=== PATIENT | female | born 1930 | race Caucasian/White ===

== ENCOUNTER 2017-11-29 03:37 | Observation (INO) | payer OTHER ==
[~2017-11-29] VITALS: Ht 154.9 cm; Wt 59.0 kg
[~2017-11-29 03:37] MED LIST: AMOXICILLIN500 M3 PO; ANTIVERT 25 MG25 MG PO; BENTYL10 MG PO; BISACODYL10 MG PR; CYCLOBENZAPRINE10 M1 PO; DULCOLAX10 M1 RC; FOSAMAX10 MG PO; GABAPENTIN100 M2 PO; GOLYTELY 40004000 ML PO; LIORESAL 10MG T10 MG PO; LISINOPRIL20 MG PO; LYRICA25 MG PO; MEDROL4 M2 PO; METFORMIN HCL1000 M1 PO; METFORMIN1000 MG PO; MIRALAX17 G1 PO; MIRALAX17 GM PO; MOBIC7.5 MG PO; MOTRIN 400 MG400 MG PO; OMEPRAZOLE20 M2 PO; OMEPRAZOLE20 MG PO; PERCOCET 325 MG1 TA2 PO; ROXICODONE5 MG PO; SENOKOT-S TABL1 EACH PO; SIMVASTATIN10 M1 PO; Senokot S PO; TRAMADOL HCL50 M1 PO; TYLENOL #31 TAB PO; TYLENOL EXTRA500 M2 PO; TYLENOL500 MG PO; Tylenol PO; VITAMIN D1000 IU PO; ZOFRAN4 M1 SL
--- NOTE | 2017-11-29 14:10 | Operative Report ---
Operative/Inv Procedure Report Surgery Date: 11/29/17 Name of Procedure: left ureter (UPJ) stone ESWL with fluoroscopy Pre-Operative Diagnosis: left colic with large left UPJ stone Post-Operative Diagnosis: same Estimated Blood Loss: none Surgeon/[employer]obile [employer] Builder: Clyde Calderon MD Anesthesia: moderate sedation Specimens: none Complications: none Condition: improved Operative/Procedure Note Note: The patient was taken to the operating room and placed on the ESWL table in supine position. Time out was performed, with the patient awake, to confirm identity, procedure, laterality, and other pertinent randal-operative information. After adequate anesthesia, the patient was positioned so that the left flank was placed over the ESWL table cut-out, and overlying the dome of the shockwave generator. C-arm fluroscopy, as well as renal US was used to locate the stone, and evaluate the left kidney. The stone was visible on fluroloscopy at the proximal left ureter. Renal US confirmed mild hydronephrosis, with no additional stone seen in the left kidney. The left ureter stone was approximate 9 mm in size, and visible with fluoroscopy. Using fluoroscopy, the position of the ureter stone was optimized for ESWL, using AP, and oblique views of the stone. Subsequently, E.S.W.L. was initiated at low power levels x 200 shocks. After noting the patient's tolerance to the shockwaves, the shock wave power level was quickly maximized. At the end of the procedure, the composition of the stone had changed significantly indicating the pulverization of the ureter stone. A total of 3000 shockwaves were delivered to the stone in order to achieve adequate lithotrypsy. The patient tolerated the procedures well, was awakened, and taken to recovery in satisfactory condition via stretcher. The pt will eventually be dischared to home with pain meds, diet orders, and intructions to catch fragments with straining the urine. The patient is to have follow-up renal ultrasound and KUB (after the left renal stone is treated as well).
[2017-11-29 19:00] VITALS: BP 166/90
[2017-11-29 22:27] VITALS: BP 120/60
--- NOTE | 2017-11-30 01:16 | History & Physical ---
Madelaine GARCIA,[facility] 11/30/17 0115: General Information and HPI MD Statement: I have seen and personally examined MICHELLE MAHER and documented this H&P. The patient is a 87 year old F who presented with a patient stated chief complaint of [severe abdominal pain S/P ESWL]. Source of Information: patient Exam Limitations: poor historian History of Present Illness: Ms. Maher is 87 year old female with past medical history significant for hypertension, GERD, osteoarthritis, diabetes, vertigo, low back pain, recent ED visit 11/14/17 for severe low back pain, CT abdomen and pelvis was obtained and revealed 9 mm proximal left ureteral calculus without definitive obstruction, patient was discharged home to follow up with urology. UA negative for nitrates however urine culture grew enterococcus that was sensitive. Patient was treated with amoxicillin for 10 days. Today patient had ESWL with Dr. Calderon for left ureter [UPJ] stone with fluoroscopy, patient tolerated procedure well however in PICU patient started to have intractable abdominal pain, nausea and vomiting and was admitted to general medical floor for pain management. Patient received 1 tab of Percocet and Zofran for nausea, reported feeling much better, sleeping comfortably. Patient reported LLQ and left flank pain however after medication she denied any severe abdominal pain, nausea, vomiting, burning with urination. She denied any chest pain, shortness of breath, palpitation, dizziness or blurry vision. Allergies/Medications Allergies: Coded Allergies: codeine (N/V, DIZZY 02/06/16) Home Med list Amoxicillin 500 MG TABLET 1 TAB PO BID UTI Bisacodyl (Dulcolax) 10 MG SUPP.RECT 1 SUP RC DAILY PRN Constipation Cyclobenzaprine HCl 10 MG TABLET 1 TAB PO Q12 PRN PAIN Gabapentin 100 MG CAPSULE 200 MG PO TID PAIN CONTROL Metformin HCl 1,000 MG TABLET 1 TAB PO DAILY DIABETES (Reported) Methylprednisolone. (Medrol) 4 MG TAB.DS.PK 1 DP PO AD Inflammation 6 on day 1 then reduce by one tablet daily until gone Omeprazole 20 MG CAPSULE.DR 1 CAP PO DAILY GI (Reported) Polyethylene Glycol 3350 (Miralax) 17 GM POWD.PACK 1 PAC PO DAILY Constipation dissolve in water Sennosides/Docusate Sodium (Senokot-S Tablet) 1 EACH TABLET 2 TAB PO AT BED TIME CONSTIPATION (Reported) Simvastatin (Simvastatin*) 10 MG TABLET 1 TAB PO QPM CHOLESTEROL (Reported) Tramadol HCl 50 MG TABLET 50 MG PO TID PAIN CONTROL [Tylenol] 1,000 MG PO TID Past History Medical History Blood Transfusion Hx: No Neurological: vertigo EENT: NONE Cardiovascular: hypertension Respiratory: NONE Gastrointestinal: GERD Hepatic: NONE Renal: NONE Musculoskeletal: osteoarthritis Psychiatric: NONE Endocrine: diabetes Blood Disorders: NONE Cancer(s): NONE WIRING INSPECTOR/Reproductive: NONE History of MRSA: No History of VRE: No History of CDIFF: No Surgical History Surgical History: cholecystectomy Past Family/Social History Family History Relations & Conditions if any Relation not specified for: *No pertinent family history Psychosocial History Services at Home: None Smoking Status: Never Smoked Review of Systems Review of Systems Constitutional: Denies: chills, fever. EENTM: Denies: double vision, nasal pain. Cardiovascular: Denies: chest pain, palpitations. Respiratory: Denies: cough, short of breath. GI: Denies: abdominal pain, constipation. Genitourinary: Denies: dysuria, hematuria. Exam & Diagnostic Data Last 24 Hrs of Vital Signs/I&O Vital Signs Date Time Temp Pulse Resp B/P B/P Pulse O2 O2 Flow FiO2 Mean Ox Delivery Rate 11/29 2227 97.9 99 20 120/60 94 Room Air 11/29 1900 98.0 112 16 166/90 92 Room Air Intake & Output 11/30 0800 11/30 0000 11/29 1600 Intake Total 60 Output Total Balance 60 Intake, IV 10 Intake, Oral 50 Patient 58.967 kg 58.967 kg Weight Physical Exam General Appearance Alert, Cooperative, No Acute Distress Skin No Rashes, No Breakdown Skin Temp/Moisture Exam: Warm/Dry HEENT Atraumatic, PERRLA, EOMI, Mucous Membr. moist/pink Neck Supple Cardiovascular Regular Rate, Normal S1, Normal S2, No Murmurs Lungs Clear to Auscultation, Normal Air Movement Abdomen Normal Bowel Sounds, Soft, No Tenderness, no flank tenderness Neurological Normal Speech, Strength at 5/5 X4 Ext Extremities No Clubbing, No Cyanosis, No Edema, Normal Pulses Assessment/Plan Assessment: Ms. Maher is 87 year old female with past medical history significant for hypertension, anemia, chronic kidney disease, GERD, osteoarthritis, diabetes, vertigo, low back pain, was admitted from PICU after ESWL for left ureter [UPJ] stone with fluoroscopy for sever left lower quadrant and left flank pain associated with nausea and vomiting. S/P treatment of sensitive entercoccus in urine culture 11/14/17 with 10 days amoxcillin. Admission vital signs temperature 97.9, pulse 99, blood pressure 120/60, respiratory rate 20 with saturation 94% on room air Problem list Intractable pain status post ESWL for left ureter stone with fluoroscopy Hypertension Diabetes mellitus Osteoarthritis Plan Observe in general medical floor Vitals every shift Repeat CBC and BMP in a.m. Pain medication acetaminophen for mild pain and Percocet for moderate to severe pain Avoid narcotics Accu check and NovoLog sliding scale low-dose Continue home medication DVT prophylaxis heparin subcutaneous Diet diabetic with sodium restriction Code Full confirmed by family Louis Maher son on [phone] As Ranked By This Provider Problem List: 1. Intractable back pain Core Measures/Misc (07/03) Acute Coronary Syndrome ACS Diagnosis: No Congestive Heart Failure Congestive Heart Failure Diagnosis No Cerebrovascular Accident CVA/TIA Diagnosis: No VTE (View Protocol) VTE Risk Factors Age>40 No Mechanical VTE Prophylaxis d/t N/A MechProphylax Ordered No VTE Pharm Prophylaxis d/t NA PharmProphylax ordered Sepsis (View protocol) Sepsis Present: No Observation Initial Note - I have personally examined MICHELLE MAHER on 11/30/17 at 0412. 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 She was found to have left ureteral nonobstructing stone with no hydronephrosis. Patient was suggested to follow-up with primary care physician urologist. Urologist planned ESWL and obtained cardiac clearance for days back. Today patient underwent left ureter ( UPJ) stone ESWL with fluoroscopy. Postprocedure patient persistently had pain 5/ 10, nonradiating. Patient could not tolerate any by mouth intake and vomited 3 times. Patient received gentle hydration in PACU. Because of persistent pain patient was suggested to be an observation in hospital. Vitals: Afebrile, was 112, RR 16, blood pressure 166/90, saturating well on room air. On exam: A O 3, cooperative, no acute distress, hard of hearing, neck supple, JVD normal, no lymphadenopathy, mucosa moist, no focal neurological deficit, no dependent edema, no obvious skin rashes or inflammation CVS: S1-S2, RRR. RS: Clear to auscultate bilaterally. Abdomen: Soft, mild left flank and CVA tenderness, ND, bowel sounds present. Assessment and plan 87-year-old female with past medical history significant for GERD, OA, DM, Vertigo, CVA s/p tPA January 2017, underwent left ureter (UPJ) stone ESWL with fluoroscopy. Postprocedure patient persistently had pain 5/10, nonradiating. Patient could not tolerate any by mouth intake and vomited 3 times. Vomiting could be secondary to Dilaudid. Her tachycardia and mildly elevated blood pressure could be secondary to pain. Patient would benefit placement in observation for adequate pain control before discharge and advancing diet in the setting of nausea vomiting. Of note on November 14 patient's urine culture grew sensitive enterococcus and was treated with amoxicillin for 10 days prior to procedure. + Left flank pain postop ESWL + Nausea vomiting + History of GERD, OA, DM, Vertigo, CVA - Place in observation on general medicine - Advance diet as tolerated - When necessary Zofran - Adequate pain control - Urology consultation - Continue sliding scale insulin - Continue rest of her home medications - DVT prophylaxis
--- NOTE | 2017-11-30 06:10 | Event Note ---
Event Note Event Note: Code Full confirmed by family Louis Hsu son on [phone]
[2017-11-30 06:20] VITALS: BP 136/70
--- NOTE | 2017-11-30 07:25 | PN-Observation ---
Gene GARCIA,[facility] 11/30/17 0725: Observation Note Observation Note _ I have personally examined MICHELLE MAHER. her disposition is uncertain at this time. Before a determination can be made, she requires continued observation for the following reasons [L flank pain after ESWL]. Assessment/Plan Assessment: Ms. Maher is 87 year old female with past medical history significant for hypertension, anemia, chronic kidney disease, GERD, osteoarthritis, diabetes, vertigo, low back pain, was admitted from PICU after ESWL for left ureter [UPJ] stone with fluoroscopy for sever left lower quadrant and left flank pain associated with nausea and vomiting. S/P treatment of sensitive entercoccus in urine culture 11/14/17 with 10 days amoxcillin. Admission vital signs temperature 97.9, pulse 99, blood pressure 120/60, respiratory rate 20 with saturation 94% on room air Problem list Intractable pain status post ESWL for left ureter stone with fluoroscopy Hypertension Diabetes mellitus Osteoarthritis Plan -KUB revealved no stone but patient continued to have pain. -Repeat CT abd with IV contrast: Left grade 1 hydronephrosis secondary to obstructive left ureteral calculi. Moderate-sized left perinephric fluid collection. Hiatal hernia. Small left pleural effusion with associated airspace disease. -f/u urology consult -WBC 12.8. continue to monitor. Most likely stress as pt has been afebrile -h/h 9.9/29.3. mildly below baseline. cont to monitor for s/p ESWL hematoma -Cr 1.3: CKD is stable. cont to monitor Pain medication acetaminophen for mild pain and Percocet for moderate to severe pain Avoid narcotics Accu check and NovoLog sliding scale low-dose Continue home medication DVT prophylaxis heparin subcutaneous Diet diabetic with sodium restriction Code Full confirmed by family Louis Maher son on [phone] Problem List: 1. Kidney stone 2. Hydronephrosis Subjective Follow-up For: flank pain ESWL Subjective: No acute problems overnight. Still complaining of L flank pain and now difuse abd pain. Review of Systems Constitutional: Reports: see HPI. Cardiovascular: Reports: no symptoms. Respiratory: Reports: no symptoms. Gastrointestinal: Reports: no symptoms. Genitourinary: Reports: no symptoms. Musculoskeletal: Reports: see HPI, back pain. Objective Last 24 Hrs of Vital Signs/I&O Vital Signs Date Time Temp Pulse Resp B/P B/P Pulse O2 O2 Flow FiO2 Mean Ox Delivery Rate 11/30 2228 98.1 98 20 122/60 92 Room Air 11/30 1445 98.2 98 20 120/70 96 11/30 0620 97.5 85 18 136/70 95 Room Air Intake & Output 11/30 1600 11/30 0800 11/30 0000 Intake Total 100 60 Output Total Balance 100 60 Intake, IV 10 Intake, Oral 100 50 Patient 130 lb Weight Physical Exam General Appearance: Alert, Cooperative, Mild Distress Cardiovascular: tachycardic Lungs: Clear to Auscultation, Normal Air Movement Abdomen: diffuse abd pain, BS+, very tender LLQ pain Vascular: 2+ radial pulses Current Medications: Current Medications Sig/Casey Start time Last Medication Dose Route Stop Time Status Admin Acetaminophen 650 MG Q6P PRN 11/30 0200 AC 11/30 PO 1742 Atorvastatin Calcium 5 MG 1700 11/30 1700 AC 11/30 PO 1740 Bisacodyl 10 MG DAILY PRN 11/30 0400 AC WV Gabapentin 200 MG TID 11/30 1000 AC 11/30 PO 2055 Heparin Sodium 5,000 UNIT Q8 11/30 0600 AC 11/30 (Porcine) SC 2055 Insulin Aspart 0 TIDAC 11/30 0800 AC SC Omeprazole 20 MG DAILY 11/30 1000 AC 11/30 PO 0831 Ondansetron HCl 4 MG Q6P PRN 11/30 0200 AC IV Ondansetron HCl 4 MG ONCE PRN 11/29 1930 AC IV Oxycodone/ 1 TAB Q6P PRN 11/30 0200 AC Acetaminophen PO Polyethylene Glycol 17 GM DAILY NEEDED PRN 11/30 1130 AC PO Senna 374 MG AT BEDTIME NEED.. 11/30 1145 AC PO Sodium Chloride 1,000 ML Q10H 11/30 2000 AC 11/30 IV 12/01 0559 2055 Last 24 Hrs of Labs/Mics: Laboratory Tests 11/30/17 0719: Anion Gap 11, Estimated GFR 39 L, BUN/Creatinine Ratio 17.7, CBC w Diff NO MAN DIFF REQ, RBC 3.19 L, MCV 91.9, MCH 30.9, MCHC 33.6, RDW 14.9 H, MPV 9.4, Gran % 77.6 H, Lymphocytes % 9.7 L, Monocytes % 12.4 H, Eosinophils % 0.2, Basophils % 0.1, Absolute Granulocytes 9.9 H, Absolute Lymphocytes 1.2, Absolute Monocytes 1.6 H, Absolute Eosinophils 0, Absolute Basophils 0
[2017-11-30 08:21] LABS: ABSOLUTE BASOPHIL COUNT 0 /CUMM (0.0-0.2); ABSOLUTE EOSINOPHIL COUNT 0 /CUMM (0.0-0.7); ABSOLUTE GRANULOCYTE CT 9.9 /CUMM (1.4-6.5); ABSOLUTE LYMPH COUNT 1.2 /CUMM (1.2-3.4); ABSOLUTE MONOCYTE COUNT 1.6 /CUMM (0.10-0.60); BASOPHIL % 0.1 % (0.0-2.0); EOSINOPHIL % 0.2 % (0-5); GRANULOCYTE % 77.6 % (42.2-75.2); HEMATOCRIT 29.3 % (37-47); MEAN CORPUSCULAR HGB 30.9 PG (27.0-31.0); MEAN CORPUSCULAR HGB CONC 33.6 G/DL (33.0-37.0); MEAN CORPUSCULAR VOLUME 91.9 FL (81.0-99.0); MEAN PLATELET VOLUME 9.4 FL (7.4-10.4); PLATELET COUNT 208 /CUMM (130-400); RBC DISTRIBUTION WIDTH 14.9 % (11.5-14.5); RED BLOOD CELL CT 3.19 /CUMM (4.20-5.40); WHITE BLOOD CELL COUNT 12.8 /CUMM (4.8-10.8)
[2017-11-30 14:45] VITALS: BP 120/70
--- NOTE | 2017-11-30 16:07 | RADIOLOGY REPORT ---
EXAMINATION: CR ABDOMEN CLINICAL INDICATION: Continued abdominal pain. Assess for free air, stool, kidney stones, etc. Abdominal pain status post ESWL. COMPARISON: Two-view abdomen dated 08/07/2014. CT scan of the abdomen and pelvis dated 11/14/2017. TECHNIQUE: AP view of the abdomen performed on 2 images. FINDINGS: There are no radiopaque calculi seen projected over the kidneys. The proximal left ureteral calculus seen on CT scan is not seen on this KUB. Patient gives a history of previous ESWL. Multiple calcifications are projected over the pelvis, appearing similar to prior KUB. No definite retained ureteral calculi are suspected. A peripherally rim-calcified diverticular outpouching in the right lower quadrant is again seen, unchanged. Diffuse osteopenia is noted with compression deformity of the L3 vertebral body, unchanged from prior study. Included lung bases are clear. Dense atherosclerotic calcifications of the aortoiliac vessels are noted. IMPRESSION: The proximal left ureteral calculus seen on recent CT scan is not visualized on this plain film and presumably has been obliterated by ESWL. No suspicious calcifications seen to suspect retained ureteral calculi, though evaluation is limited by multiple calcific densities seen chronically in the pelvis.
--- NOTE | 2017-11-30 22:06 | CT SCAN REPORT ---
EXAMINATION: CT ABDOMEN AND PELVIS WITH CONTRAST CLINICAL INFORMATION: Abdominal pain. COMPARISON: 11/14/2017. TECHNIQUE: Contiguous axial thin section helical images of the abdomen and pelvis were performed following the administration of 90 mL of intravenous Optiray 320. The data set was reformatted in the coronal and sagittal planes and reviewed on an independent workstation. DLP: 284 mGy-cm. FINDINGS: There is a small left pleural effusion with adjacent atelectasis. There is mild dependent atelectasis at the right lung base. The visualized portions of the heart are unremarkable. There is a moderate hiatal hernia present. The liver is of normal size and attenuation without focal lesions nor intrahepatic biliary ductal dilation. The patient is status post cholecystectomy. Surgical clips are present. The spleen, pancreas, adrenal glands are unremarkable. Normal right kidney is identified. Prompt bilateral symmetric nephrograms are present following contrast administration. There is left grade 1 hydronephrosis secondary to an obstructive mid left ureteral calculus measuring 4 mm. There are additional nonobstructive calculi within the renal pelvis. There is a moderate-sized perinephric fluid collection present. There is no abdominal free fluid. There is neither mesenteric nor retroperitoneal lymphadenopathy. Normal unopacified loops of small and large bowel are identified. There is no pelvic free fluid. The urinary bladder is unremarkable. There is neither pelvic nor inguinal lymphadenopathy. Bone windows: Neither sclerotic nor lytic bone lesions are identified. There is an L3 compression fracture present. IMPRESSION: Left grade 1 hydronephrosis secondary to obstructive left ureteral calculi. Moderate-sized left perinephric fluid collection. Hiatal hernia. Small left pleural effusion with associated airspace disease.
[2017-11-30 22:28] VITALS: BP 122/60
[2017-12-01 06:00] VITALS: BP 152/80
--- NOTE | 2017-12-01 07:38 | PN-Observation ---
Fredis Herzog MD,[facility] 12/01/17 0738: Observation Note Observation Note _ I have personally examined MICHELLE MAHER. her disposition is uncertain at this time. Before a determination can be made, she requires continued observation for the following reasons [Flank pain]. Assessment/Plan Assessment: Ms. Maher is 87 year old female with past medical history significant for hypertension, anemia, chronic kidney disease, GERD, osteoarthritis, diabetes, vertigo, low back pain, was admitted from PICU after ESWL for left ureter [UPJ] stone with fluoroscopy for sever left lower quadrant and left flank pain associated with nausea and vomiting. Patient was recently completed the 10 day course of Amoxicillin treatment for sensitive entercoccus in urine culture . At the time of admission temperature 97.9, pulse 99, blood pressure 120/60, respiratory rate 20 with saturation 94% on room air. Patient was placed under observation in GM floor for management of following conditions: Intractable pain status post ESWL for left ureter stone with fluoroscopy Abdominal xray revealed no stone. Repeat CT abd with IV contrast: Left grade 1 hydronephrosis secondary to obstructive left ureteral calculi. Moderate-sized left perinephric fluid collection. Hiatal hernia. Small left pleural effusion with associated airspace disease. Hb was stable, Cr level was stable at 1.5 with hisotry of CKD. Chronic Hypertension, Diabetes mellitus, Osteoarthritis Accuchecks and sliding scale We continued home medication Rehabiliation patient was recommended STR most likely due to deconditioning. DVT prophylaxis heparin subcutaneous Diet diabetic with sodium restriction Code Full With improvement of condition patient was discharged with recommendation below: Please follow with your PCP within one week of discharge. Please follow-up with your urologist, Dr. Calderon within 1 week of discharge. Problem List: 1. Flank pain Plan: Discharge to STR Discharge Plan Discharge Disposition: STR/NH Stable for Discharge? Yes Anticipated Discharge (Day): today Subjective Follow-up For: Flank pain s/p ESWL Subjective: Patient visited today, was lying in bed comfortably in no acute distress, was alert and oriented. Son at the bedside. reported improvement in pain, however noted to be wobbly when walking. No fever or chills, no shortness of breathing, no chest pain, no other events. Planned to discharge to STR per PT recommendation. Review of Systems Constitutional: Reports: see HPI. Objective Last 24 Hrs of Vital Signs/I&O Vital Signs Date Time Temp Pulse Resp B/P B/P Pulse O2 O2 Flow FiO2 Mean Ox Delivery Rate 12/01 1423 98.7 111 20 120/60 94 12/01 1056 Room Air 12/01 0600 98.0 92 20 152/80 94 Room Air 11/30 2228 98.1 98 20 122/60 92 Room Air Intake & Output 12/01 1600 12/01 0800 12/01 0000 Intake Total 700 400 520 Output Total Balance 700 400 520 Intake, IV 400 400 Intake, Oral 700 120 Physical Exam General Appearance: Alert, Oriented X3, Cooperative, No Acute Distress Skin: No Significant Lesion Skin Temp/Moisture Exam: Warm/Dry Sepsis Skin Exam (color): Normal for Ethnicity HEENT: Atraumatic, EOMI, Mucous Membr. moist/pink Cardiovascular: Normal S1, Normal S2 Lungs: Clear to Auscultation Abdomen: Soft, No Tenderness Neurological: Normal Speech Extremities: No Edema Current Medications: Current Medications Sig/Casey Start time Last Medication Dose Route Stop Time Status Admin Acetaminophen 650 MG Q6P PRN 11/30 0200 AC 11/30 PO 1742 Atorvastatin Calcium 5 MG 1700 11/30 1700 AC 11/30 PO 1740 Bisacodyl 10 MG DAILY PRN 11/30 0400 AC VA Gabapentin 200 MG TID 11/30 1000 AC 12/01 PO 0811 Heparin Sodium 5,000 UNIT Q8 11/30 0600 AC 12/01 (Porcine) SC 1308 Insulin Aspart 0 TIDAC 11/30 0800 AC SC Omeprazole 20 MG DAILY 11/30 1000 AC 12/01 PO 0811 Ondansetron HCl 4 MG Q6P PRN 11/30 0200 AC IV Ondansetron HCl 4 MG ONCE PRN 11/29 1930 AC IV Oxycodone/ 1 TAB Q6P PRN 11/30 0200 AC Acetaminophen PO Polyethylene Glycol 17 GM DAILY NEEDED PRN 11/30 1130 AC 12/01 PO 1031 Senna 374 MG AT BEDTIME NEED.. 11/30 1145 AC PO Sodium Chloride 1,000 ML Q10H 11/30 2000 DC 11/30 IV 12/01 0559 2055 Last 24 Hrs of Labs/Mics: Laboratory Tests 12/01/17 0748: Anion Gap 9, Estimated GFR 42 L, BUN/Creatinine Ratio 14.2, CBC w Diff NO MAN DIFF REQ, RBC 3.03 L, MCV 92.6, MCH 31.0, MCHC 33.5, RDW 14.9 H, MPV 9.1, Gran % 68.2, Lymphocytes % 16.1 L, Monocytes % 13.0 H, Eosinophils % 1.2, Basophils % 1.5, Absolute Granulocytes 7.7 H, Absolute Lymphocytes 1.8, Absolute Monocytes 1.5 H, Absolute Eosinophils 0.1, Absolute Basophils 0.2 Eliana Griffin 12/01/17 1149: Attending Addendum Attending Brief Note 87 year old female with past medical history significant for hypertension, anemia, chronic kidney disease, GERD, osteoarthritis, diabetes, vertigo, low back pain, was admitted from PICU after ESWL for left ureter [UPJ] stone with fluoroscopy for sever left lower quadrant pain. CT abd/pelvis with mild hematoma. urology consulted and reocmmend conservative managmenet. Patient seen by PT who recommend STR at discharge for general physical deconditioning. Patient is medically stable for discharge.
[2017-12-01 08:20] LABS: ABSOLUTE BASOPHIL COUNT 0.2 /CUMM (0.0-0.2); ABSOLUTE EOSINOPHIL COUNT 0.1 /CUMM (0.0-0.7); ABSOLUTE GRANULOCYTE CT 7.7 /CUMM (1.4-6.5); ABSOLUTE LYMPH COUNT 1.8 /CUMM (1.2-3.4); ABSOLUTE MONOCYTE COUNT 1.5 /CUMM (0.10-0.60); BASOPHIL % 1.5 % (0.0-2.0); EOSINOPHIL % 1.2 % (0-5); GRANULOCYTE % 68.2 % (42.2-75.2); HEMATOCRIT 28.1 % (37-47); MEAN CORPUSCULAR HGB CONC 33.5 G/DL (33.0-37.0); MEAN CORPUSCULAR VOLUME 92.6 FL (81.0-99.0); MEAN PLATELET VOLUME 9.1 FL (7.4-10.4); PLATELET COUNT 231 /CUMM (130-400); RBC DISTRIBUTION WIDTH 14.9 % (11.5-14.5); RED BLOOD CELL CT 3.03 /CUMM (4.20-5.40); WHITE BLOOD CELL COUNT 11.3 /CUMM (4.8-10.8)
--- NOTE | 2017-12-01 08:55 | PN- Urology ---
Surgical Brief Attending Note Brief Attending Note: PT MORE COMFORTABLE TODAY AND WANTS TO GO HOME; VSS AFEBRILE. TOLERATING REGULAR DIET. VOIDING WELL. SOFT TISSUE CONTUSION POST ESWL RESULTING IN FLAND PAIN (CT REVIEWED). DC PLAN WITH PAIN MEDS PER MEDICAL SERVICE.
[2017-12-01] MEDS ORDERED: GABAPENTIN100 M2 PO (09:48)
[2017-12-01 14:23] VITALS: BP 120/60
--- NOTE | 2017-12-01 15:11 | Patient Discharge Instructions ---
Discharge Instructions General Discharge Information You were seen/treated for: Renal stone You had these procedures: left ureter (UPJ) stone ESWL with fluoroscopy Watch for these problems: severe flank pain, abdominal pain, chills, fever. change in urine color, frequency, urgency, or worsening of any other symptoms Special Instructions: Please follow with your PCP within one week of discharge. Please follow-up with your urologist, Dr. Calderon within 1 week of discharge. Diet Continue normal diet: No Recommended Diet: Diabetic Activity Full Activity/No Limits: No Activity Self Limited: Yes Acute Coronary Syndrome Inclusion Criteria At DC or during hospital stay patient has or had the following: ACS DIAGNOSIS No Discharge Core Measures Meds if any: Prescribed or Continued at Discharge Meds if any: NOT Prescribed or Continued at Discharge Congestive Heart Failure Inclusion Criteria At DC or during hospital stay patient has or had the following: CHF DIAGNOSIS No Discharge Core Measures Meds if any: Prescribed or Continued at Discharge Meds if any: NOT Prescribed or Continued at Discharge Cerebrovascular accident Inclusion Criteria At DC or during hospital stay patient has or had the following: CVA/TIA Diagnosis No Discharge Core Measures Meds if any: Prescribed or Continued at Discharge Meds if any: NOT Prescribed or Continued at Discharge Venous thromboembolism Inclusion Criteria VTE Diagnosis No VTE Type NONE VTE Confirmed by (Test) NONE Discharge Core Measures - Per Current guidelines, there needs to be overlap - treatment for the first 5 days of Warfarin therapy. - If discharged on Warfarin prior to 5 days of - overlap therapy, the patient will need to be - assessed for post discharge needs including - *Post discharge parental anticoagulation - *Warfarin and/or parental anticoagulation education - *Follow up date to check INR post discharge At least 5 days overlap therapy as Inpatient No Meds if any: Prescribed or Continued at Discharge Note: Overlap Therapy is Warfarin and Anticoagulant Meds if any: NOT Prescribed or Continued at Discharge
--- NOTE | 2017-12-01 15:39 | Discharge Summary ---
Visit Information Visit Dates Admission Date: 11/29/17 Discharge Date: 12/01/17 Hospital Course Course Attending Physician: Dr Griffin Primary Care Physician: Nicole GARCIA,Nicole [facility] Course: Ms. Hsu is 87 year old female with past medical history significant for hypertension, anemia, chronic kidney disease, GERD, osteoarthritis, diabetes, vertigo, low back pain, was admitted from PICU after ESWL for left ureter [UPJ] stone with fluoroscopy for sever left lower quadrant and left flank pain associated with nausea and vomiting. Patient was recently completed the 10 day course of Amoxicillin treatment for sensitive entercoccus in urine culture . At the time of admission temperature 97.9, pulse 99, blood pressure 120/60, respiratory rate 20 with saturation 94% on room air. Patient was placed under observation in floor for management of following conditions: Intractable pain status post ESWL for left ureter stone with fluoroscopy Abdominal xray revealed no stone. Repeat CT abd with IV contrast: Left grade 1 hydronephrosis secondary to obstructive left ureteral calculi. Moderate-sized left perinephric fluid collection. Hiatal hernia. Small left pleural effusion with associated airspace disease. Hb was stable, Cr level was stable at 1.5 with hisotry of CKD. Chronic Hypertension, Diabetes mellitus, Osteoarthritis Accuchecks and sliding scale We continued home medication Rehabiliation patient was recommended STR most likely due to deconditioning. DVT prophylaxis heparin subcutaneous Diet diabetic with sodium restriction Code Full with improvement of condition patient was discharged with recommendations below: Allergies: Coded Allergies: codeine (N/V, DIZZY 02/06/16) Significant Procedures: left ureter (UPJ) stone ESWL with fluoroscopy Disposition Summary Disposition Principal Diagnosis: Intractable pain status post ESWL for left ureter stone with fluoroscopy Additional Diagnosis: Chronic Hypertension, Diabetes mellitus, Osteoarthritis rehabiliation Discharge Disposition: SNF Discharge Instructions General Discharge Information Code Status: Full Code Patient's Diet: Diabetic Patient's Activity: Self limited, Ambulation with assistance, under observation Follow-Up Instructions/Appts: Please follow with your PCP within one week of discharge. Please follow-up with your urologist, Dr. Calderon within 1 week of discharge. Medications at Discharge Discharge Medications: Stop taking the following medications: Methylprednisolone. (Medrol) 4 MG TAB.DS.PK ORAL As Directed Qty = 1 Amoxicillin (Amoxicillin) 500 MG TABLET ORAL TWICE DAILY Qty = 20 Continue taking these medications: Metformin HCl (Metformin HCl) 1,000 MG TABLET 1 Tablet ORAL DAILY Qty = 60 Comments: NOT GIVEN IN HOSPITAL Simvastatin (Simvastatin*) 10 MG TABLET 1 Tablet ORAL Every night Qty = 90 Comments: LIPITOR GIVEN IN HOSP 11/30/17 5:40 PM Omeprazole (Omeprazole) 20 MG CAPSULE.DR 1 Capsule ORAL DAILY Qty = 90 Comments: Last Taken: 12/01/17 Time: 10:00 AM Sennosides/Docusate Sodium (Senokot-S Tablet) 1 EACH TABLET 2 Tablet ORAL AT BED TIME Comments: NOT GIVEN IN HOSPITAL Tramadol HCl (Tramadol HCl) 50 MG TABLET 50 Milligram ORAL THREE TIMES DAILY Days = 14 Comments: NOT GIVEN IN HOSPITAL [Tylenol] 1,000 Milligram ORAL THREE TIMES DAILY Comments: NOT GIVEN IN HOSPITAL Polyethylene Glycol 3350 (Miralax) 17 GM POWD.PACK 1 Packet ORAL DAILY Qty = 2 Instructions: dissolve in water Comments: LAST GIVEN: 12/01/17 10:00 AM Bisacodyl (Dulcolax) 10 MG SUPP.RECT 1 Suppository RECTAL DAILY as needed for Constipation Qty = 10 Comments: NOT GIVEN IN HOSPITAL Cyclobenzaprine HCl (Cyclobenzaprine HCl) 10 MG TABLET 1 Tablet ORAL EVERY 12 HOURS as needed for PAIN Qty = 20 Comments: NOT GIVEN IN HOSPITAL The following medications have been changed: Old: Gabapentin (Gabapentin) 100 MG CAPSULE 200 Milligram ORAL THREE TIMES DAILY Days = 28 New: Gabapentin (Gabapentin) 100 MG CAPSULE 100 Milligram ORAL AT BEDTIME Qty = 30 Comments: Last Taken: 12/01/17 Time: 10:00 AM Copies To: Nicole GARCIA,Cherise Calderon MD,Clyde Ventura MD Review Statement Documenting Attending: Eliana Griffin MD Other Findings: 87 year old female with past medical history significant for hypertension, anemia, chronic kidney disease, GERD, osteoarthritis, diabetes, vertigo, low back pain, was admitted from PICU after ESWL for left ureter [UPJ] stone with fluoroscopy for sever left lower quadrant pain. CT abd/pelvis with mild hematoma. urology consulted and reocmmend conservative managmenet. Patient seen by PT who recommend STR at discharge for general physical deconditioning. Patient is medically stable for discharge.
[2017-12-01 15:42] VITALS: BP 120/60
== END 2017-12-01 16:35 ==
LOC: STS 03:37 → 2NA 17:31 → PACUH 17:31 → ENRESERV 17:53 → 2NA 19:09
PROVIDERS: Student in an Organized Health Care Education/Training Program
DX: N13.2 Hydronephrosis with renal and ureteral calculous obstruction (principal); E11.22 Type 2 diabetes mellitus with diabetic chronic kidney disease; N18.9 Chronic kidney disease, unspecified; I10 Essential (primary) hypertension; Z79.84 Long term (current) use of oral hypoglycemic drugs; G89.18 Other acute postprocedural pain; J90 Pleural effusion, not elsewhere classified; K44.9 Diaphragmatic hernia without obstruction or gangrene
CPT/HCPCS: 36415; 74018; 74177; 82436; 93005; 93010; 96372; 97110-GP; 97116-GP; 97161-GP; G0378; G8978-GP; G8979-GP; J1644; J2250; J2405